=== PATIENT | female | born 1955 | race Caucasian/White ===

== ENCOUNTER 2023-06-25 06:34 | Emergency (ER) | payer OTHER ==
--- OUTSIDE RECORDS SUMMARY | 2023-06-25 06:38 | XMS REPORT | Continuity of Care Document ---
:1955 Author Organization [facility] t Address [address] [place] [address] [address] [place] [address] Care Team Providers Name Role Phone Asked, No Pcp Primary Care Physician Unavailable Norman Jerome Attending Clinician Unavailable FOG_A_Provider Attending Clinician Unavailable MAZIN_Norma Attending Clinician Unavailable Russ Alcantar MD Attending Clinician KATHERIN TAI Attending Clinician Unavailable Katherin Trotter Attending Clinician DR LUCINA LEMUS Attending Clinician Unavailable ARLETTE MARCUM Admitting Clinician Unavailable FOG_A_Provider Admitting Clinician Unavailable Jackie Admitting Clinician Unavailable KATHERIN TAI Admitting Clinician Unavailable DR LUCINA LEMUS Admitting Clinician Unavailable Payers Payer Name Policy Type Policy Number Effective Date Expiration Date S sally MEDICARE B-[place]: [id number] 2022 [employer] 00:00:00 [employer] (MEDICARE [id number] SUPPLEMENT) AETNA [id number] MEDICARE PART A \T\ [id number] 2022 B 00:00:00 [employer]ET[employer] SENIOR [id number] 2022 SUPPLEMENT 00:00:00 Problems Condition Condition Condition Status Onset Resolution Last Treating Co mments Source Name Details Category Date Date Treatment Clinician Date Osteoarthr Osteoarthr Problem Active A zalea itis of itis of 406 Orthope right knee Right Knee 00:00: di c joint Joint 00 Sports Medicin e Cervical Cervical Problem Active 2016-11 Azale a spondylosi Spondylosi 0-11 Or thope s s 00:00: dic 00 Sports Medicin e Lumbar Lumbar Problem Active 2016-11 [facility] radiculopa Radiculopa 0-11 Or thope thy thy 00:00: dic 00 Sports Medicin e Other Other Disease Active Univers psoriasis psoriasis 4-10 ity of 00:00: [place] 00 Medical Branch DSAP DSAP Disease Active Univers (dissemina (dissemina 4-10 it y of ranjan ranjan 00:00: [place] superficia superficia 00 Me dical l actinic l actinic Bran ch porokerato porokerato sis) sis) Dyschromia Dyschromia Disease Active Overview : Univers 4-10 Formattin ity of 00:00: g of this [place] 00 note Medical might be Branch different from the original. ICD10 Diagnosis Term Collar Cutter Utility Allergies, Adverse Reactions, Alerts Allergy Allergy Status Severity Reaction(s) Onset Inactive Treating Comm ents Source Name Type Date Date Clinician No Known DA Active U [facility] Allergie 03-26 Clear s 00:00: Montesinos 00 [facility] NO KNOWN Drug Active Univers ALLERGIE Class ity of S [facility] Social History Social Habit Start Date Stop Date Quantity Comments Source Gender identity 2022-10-08 Identifies as Method ist 07:21:38 female gender Hospital (finding) Sexual orientation [facility] Hospital Exposure to 2022-08-22 2022-09-01 Unable to assess Univers ity of SARS-CoV-2 (event) 00:00:00 15:41:00 [facility] Alcohol intake 2022-09-01 2022-09-01 Current University of 00:00:00 00:00:00 non-drinker of [facility] alcohol (finding) Branch Tobacco use and 2013-04-03 2013-04-03 Smokeless tobacco Un iversity of exposure 00:00:00 00:00:00 non-user [facility] Sex Assigned At [birth year] F [facility] 00:00:00 00:00:00 Hospital Smoking Status Start Date Stop Date Source Former Smoker [facility] Diogo reyna Sports Medicine Tobacco smoking consumption [facility] unknown Never smoked tobacco [facility] Medical Branch Medications Ordered Filled Start Stop Current Ordering Indication Dosage Frequency Signature Comments Components Source Medication Medication Date Date Medication? Clinician (SIG) Name Name meloxicam 2021-11 Yes 15mg Take 15 mg Un akira 15 mg 0-05 by mouth ity of tablet 18:08: once daily [place] [id number] as needed Medical for Pain. Branch dicyclomine 2021-11 Yes 20mg Take 20 mg Univers 20 mg 0-05 by mouth ity of tablet 18:08: as needed [place] [address] for Medical Abdominal Branch pain. cyclobenzap 2021-11 Yes 10mg Take 10 mg Univers rine 10 mg 0-05 by mouth ity o f tablet 18:08: as needed [place] [address] for Muscle Medical Spasms. Branch metoprolol 2021-11 Yes 25mg Take 25 mg U nivers succinate 0-05 by mouth ity of XL 25 mg 24 [facility] morning. Medica l Branch levothyroxi 2021-11 Yes 20mg Take 20 mg Univers ne sodium 0-05 by mouth. ity o f (EUTHYROX 18:08: [place] ORAL) 35 Medical Branch losartan-hy 2021-11 Yes 1{tbl} Take 1 Un akira drochloroth 0-05 tablet by ity of iazide 18:08: mouth in [place] 100-25 mg 35 the Medical per tablet morning. Branc h escitalopra 2021-11 Yes 10mg Take 10 mg Univers m oxalate 0-05 by mouth ity of (LEXAPRO) 18:08: in the [place] 10 mg 35 morning. Medical tablet Branch omeprazole 2021-11 Yes 40mg Take 40 mg U nivers 40 mg 0-05 by mouth ity of capsule 18:08: in the [place] 35 morning. Medical Branch simvastatin 2021-11 Yes [id number] 40mg Take 40 mg Univers (ZOCOR) 40 0-05 by mouth ity o f mg tablet 15:59: at [place] 11 bedtime. Medical Branch omega-3 2021-11 Yes [id number] 1g Take 1 g U nivers fatty 0-05 by mouth ity of acids-vitam 15:59: daily. [place] in E 1,000 11 Medical mg capsule Branch MULTIVITAMI 2021-11 Yes [id number] Take by Univers NS WITH 0-05 mouth ity of FLUORIDE 15:59: daily. [place] (MULTI-JONATHAN 11 Medical MIN ORAL) Branch MAGNESIUM 2021-11 Yes [id number] Take by Univers HYDROXIDE 0-05 mouth ity of (MAGNESIA 15:59: daily. [place] ORAL) 11 Medical Branch lisinopril 2021-11- No [id number] 10mg Take 10 mg Univers (PRINIVIL,Z 0-05 10-05 by mouth ity of ESTRIL) 10 15:57: 00:00 daily. [place] mg tablet 48 :00 Medical Branch FLUoxetine 2021-11- No [id number] 20mg Take 20 mg Univers (PROZAC) 20 0-05 10-05 by mouth ity of mg capsule 15:57: 00:00 [place]. [place] 45 :00 Medical Branch prednisone prednisone 2016-11 No prednisone [facility] 10 mg 10 mg 11 10 mg Orthope tablets in tablets in 00:00: tablets in dic a dose pack a dose pack 00 a dose Sports TAKE TAKE pack TAKE Medicin TABLETS TABLETS TABLETS e 6,5,4,3,2,1 6,5,4,3,2,1 6,5,4,3,2, 1 oxybutynin 2021- No [id number] 15mg Take 1 Tab Univers (DITROPAN 5 10-05 by mouth ity o f XL) 15 mg 00:00: 00:00 daily. [place] 24 hr 00 :00 Medical tablet Branch tretinoin Yes [id number] Apply to Univers (RETIN-A) 4- area(s) at ity of 0.025 % 00:00: bedtime. [place] cream Medical Branch fluocinonid Yes [id number] Apply to Univers e (LIDEX) 4-09 area(s) 2 ity o f 0.05 % 00:00: (two) [place] cream 00 times Medical daily. Branch calcipotrie Yes [id number] Apply to Univers ne 4-09 area(s) 2 ity of (DOVONEX) 00:00: (two) [place] 0.005 % 00 times Medical cream daily. Branch acetaminoph acetaminoph No acetaminop [facility] en 300 en 300 hen 300 Orthope mg-codeine mg-codeine mg-codeine dic 30 mg 30 mg 30 mg Sports tablet TAKE tablet TAKE tablet Medicin 1 TABLET BY 1 TABLET BY TAKE 1 e MOUTH TWICE MOUTH TWICE TABLET BY DAILY DAILY MOUTH NEEDED NEEDED TWICE DAILY NEEDED amiodarone amiodarone No amiodarone [facility] 200 mg 200 mg 200 mg Orthope tablet TAKE tablet TAKE tablet dic 1 TABLET BY 1 TABLET BY TAKE 1 Sports MOUTH TWICE MOUTH TWICE TABLET BY Medicin DAILY DAILY MOUTH e TWICE DAILY BinaxNOW BinaxNOW No BinaxNOW Aza mehul COVID-19 Ag COVID-19 Ag COVID-19 Orthope Self Test Self Test Ag Self di c kit Use as kit Use as Test kit Sports Directed on Directed on Use as Medicin the Package the Package Directed e on the Package bromphenira bromphenira No bromphenir [facility] mine-pseudo mine-pseudo amine-pseu Orthope ephedrine-D ephedrine-D doephedrin dic M 2 mg-30 M 2 mg-30 e-DM 2 Spo rts mg-10 mg/5 mg-10 mg/5 mg-30 Me dicin mL oral mL oral mg-10 mg/5 e syrup TAKE syrup TAKE mL oral 10 ML BY 10 ML BY syrup TAKE MOUTH THREE MOUTH THREE 10 ML BY TIMES DAILY TIMES DAILY MOUTH NEEDED NEEDED THREE TIMES DAILY NEEDED clobetasol clobetasol No clobetasol [facility] 0.05 % 0.05 % 0.05 % Orthope topical topical topical dic cream APPLY cream APPLY cream Sports CREAM CREAM APPLY Medicin TOPICALLY TOPICALLY CREAM e TWICE DAILY TWICE DAILY TOPICALLY TO KNEE TO KNEE TWICE DAILY TO KNEE cyclobenzap cyclobenzap No cyclobenza [facility] rine 10 mg rine 10 mg marty 10 Orthope tablet TAKE tablet TAKE mg tablet dic 1 TABLET BY 1 TABLET BY TAKE 1 Sports MOUTH THREE MOUTH THREE TABLET BY Medicin TIMES DAILY TIMES DAILY MOUTH e NEEDED NEEDED THREE TIMES DAILY NEEDED dicyclomine dicyclomine No dicyclomin [facility] 20 mg 20 mg e 20 mg Orthope tablet TAKE tablet TAKE tablet dic 1 TABLET BY 1 TABLET BY TAKE 1 Sports MOUTH EVERY MOUTH EVERY TABLET BY Medicin 8 HOURS 8 HOURS MOUTH e NEEDED NEEDED EVERY 8 HOURS NEEDED escitalopra escitalopra No escitalopr [facility] m 20 mg m 20 mg am 20 mg Ortho pe tablet TAKE tablet TAKE tablet dic 1 TABLET BY 1 TABLET BY TAKE 1 Sports MOUTH ONCE MOUTH ONCE TABLET BY Medicin DAILY DAILY MOUTH ONCE e DAILY flecainide flecainide No flecainide [facility] 50 mg 50 mg 50 mg Orthope tablet TAKE tablet TAKE tablet dic 1 TABLET BY 1 TABLET BY TAKE 1 Sports MOUTH TWICE MOUTH TWICE TABLET BY Medicin DAILY DAILY MOUTH e TWICE DAILY hydroquinon hydroquinon No hydroquino [facility] e 4 % e 4 % ne 4 % Orthope topical topical topical dic cream APPLY cream APPLY cream Sports CREAM CREAM APPLY Medicin TOPICALLY TOPICALLY CREAM e EVERY DAY EVERY DAY TOPICALLY AT BEDTIME AT BEDTIME EVERY DAY AT BEDTIME levothyroxi levothyroxi No levothyrox [facility] ne 25 mcg ne 25 mcg ine 25 mcg Orthope tablet TAKE tablet TAKE tablet dic 1 TABLET BY 1 TABLET BY TAKE 1 Sports MOUTH ONCE MOUTH ONCE TABLET BY Medicin DAILY IN DAILY IN MOUTH ONCE e THE MORNING THE MORNING DAILY IN ON AN EMPTY ON AN EMPTY THE STOMACH STOMACH MORNING ON AN EMPTY STOMACH losartan losartan No losartan Aza mehul 100 100 100 Orthope mg-hydrochl mg-hydrochl mg-hydroch dic orothiazide orothiazide lorothiazi Sports 25 mg 25 mg de 25 mg Medicin tablet TAKE tablet TAKE tablet e 1 TABLET BY 1 TABLET BY TAKE 1 MOUTH ONCE MOUTH ONCE TABLET BY DAILY DAILY MOUTH ONCE DAILY methylpredn methylpredn No methylpred [facility] isolone 4 isolone 4 nisolone 4 Orthope mg tablets mg tablets mg tablets dic in a dose in a dose in a dose Sports pack TAKE pack TAKE pack TAKE Medicin BY MOUTH BY MOUTH BY MOUTH e DIRECTED ON DIRECTED ON INSIDE OF INSIDE OF DIRECTED PACKAGE PACKAGE ON INSIDE OF PACKAGE metoprolol metoprolol No metoprolol [facility] succinate succinate succinate Orthope ER 25 mg ER 25 mg ER 25 mg dic tablet,exte tablet,exte tablet,ext Sports nded nded ended Medicin release 24 release 24 release 24 e hr TAKE 1/2 hr TAKE 1/2 hr TAKE (ONE-HALF) (ONE-HALF) 1/2 TABLET BY TABLET BY (ONE-HALF) MOUTH TWICE MOUTH TWICE TABLET BY DAILY DAILY MOUTH TWICE DAILY montelukast montelukast No montelukas [facility] 10 mg 10 mg t 10 mg Orthope tablet TAKE tablet TAKE tablet dic 1 TABLET BY 1 TABLET BY TAKE 1 Sports MOUTH ONCE MOUTH ONCE TABLET BY Medicin DAILY DAILY MOUTH ONCE e DAILY olopatadine olopatadine No olopatadin [facility] 0.2 % eye 0.2 % eye e 0.2 % Or thope drops drops eye drops dic INSTILL 1 INSTILL 1 INSTILL 1 Sports DROP INTO DROP INTO DROP INTO Medicin AFFECTED AFFECTED AFFECTED e EYE(S) ONCE EYE(S) ONCE EYE(S) DAILY DAILY ONCE DAILY omeprazole omeprazole No omeprazole [facility] 40 mg 40 mg 40 mg Orthope capsule,del capsule,del capsule,de dic ayed ayed layed Sports release release release Medici n TAKE 1 TAKE 1 TAKE 1 e CAPSULE BY CAPSULE BY CAPSULE BY MOUTH ONCE MOUTH ONCE MOUTH ONCE DAILY DAILY DAILY Paxlovid Paxlovid No Paxlovid Aza mehul 300 mg (150 300 mg (150 300 mg Orthope mg x 2)-100 mg x 2)-100 (150 mg x dic mg tablets mg tablets 2)-100 mg Sports in a dose in a dose tablets in Medicin pack (EUA) pack (EUA) a dose e TAKE 3 TAKE 3 pack (EUA) TABLETS TABLETS TAKE 3 TOGETHER TOGETHER TABLETS (TWO 150 MG (TWO 150 MG TOGETHER NIRMATRELVI NIRMATRELVI (TWO 150 R TABLETS R TABLETS MG AND ONE 100 AND ONE 100 NIRMATRELV MG MG IR TABLETS RITONAVIR RITONAVIR AND ONE TABLET) BY TABLET) BY 100 MG MOUTH TWICE MOUTH TWICE RITONAVIR DAILY FOR 5 DAILY FOR 5 TABLET) BY DAYS. DAYS. MOUTH TWICE DAILY FOR 5 DAYS. prednisone prednisone No prednisone [facility] 20 mg 20 mg 20 mg Orthope tablet TAKE tablet TAKE tablet dic 1 TABLET BY 1 TABLET BY TAKE 1 Sports MOUTH ONCE MOUTH ONCE TABLET BY Medicin DAILY FOR 5 DAILY FOR 5 MOUTH ONCE e DAYS DAYS DAILY FOR 5 DAYS simvastatin simvastatin No simvastati [facility] 10 mg 10 mg n 10 mg Orthope tablet TAKE tablet TAKE tablet dic 1 TABLET BY 1 TABLET BY TAKE 1 Sports MOUTH ONCE MOUTH ONCE TABLET BY Medicin DAILY IN DAILY IN MOUTH ONCE e THE EVENING THE EVENING DAILY IN THE EVENING simvastatin simvastatin No simvastati [facility] 40 mg 40 mg n 40 mg Orthope tablet TAKE tablet TAKE tablet dic 1 TABLET BY 1 TABLET BY TAKE 1 Sports MOUTH ONCE MOUTH ONCE TABLET BY Medicin DAILY IN DAILY IN MOUTH ONCE e THE EVENING THE EVENING DAILY IN THE EVENING temazepam temazepam No temazepam [facility] 15 mg 15 mg 15 mg Orthope capsule capsule capsule dic TAKE 1 TO 2 TAKE 1 TO 2 TAKE 1 TO Sports CAPSULES BY CAPSULES BY 2 CAPSULES Medicin MOUTH ONCE MOUTH ONCE BY MOUTH e DAILY AT DAILY AT ONCE DAILY BEDTIME BEDTIME AT BEDTIME NEEDED NEEDED NEEDED zolpidem 10 zolpidem 10 No zolpidem [facility] mg tablet mg tablet 10 mg Orth ope TAKE 1 TAKE 1 tablet dic TABLET BY TABLET BY TAKE 1 Spo rts MOUTH ONCE MOUTH ONCE TABLET BY Medicin DAILY AT DAILY AT MOUTH ONCE e BEDTIME BEDTIME DAILY AT NEEDED NEEDED BEDTIME NEEDED Immunizations Ordered Filled Immunization Date Status Comments [facility] Immunization Name Name DEBORA COVID-19 2021-09-23 Completed [facility] MRNA VACCINATION 00:00:00 [facility] PFIZER COVID-19 2021-09-23 Completed [facility] MRNA VACCINATION 00:00:00 [facility] PFIZER COVID-19 2021-02-14 Completed [facility] MRNA VACCINATION 00:00:00 [facility] SARS-COV-2 COVID-19 2021-02-14 Completed Unive rsity of PFIZER VACCINE 00:00:00 [facility] PFIZER COVID-19 2021-02-14 Completed Alev[facility] MRNA VACCINATION 00:00:00 [facility] PFIZER COVID-19 2021-01-24 Completed [facility] MRNA VACCINATION 00:00:00 [facility] SARS-COV-2 COVID-19 2021-01-24 Completed Unive rsity of PFIZER VACCINE 00:00:00 [facility] PFIZER COVID-19 2021-01-24 Completed [facility] MRNA VACCINATION 00:00:00 Hospital Vital Signs Vital Name Observation Time Observation Value Comments Source Height 2023-03-03 00:00:00 70 [in_i] [facility] BMI (Body Mass 2023-03-03 00:00:00 23.8 kg/m2 [facility] Orthopedic Index) Sports Medicine Body Weight 2023-03-03 00:00:00 166 [lb_av] [facility] Systolic blood 2022-09-01 23:00:00 140 mm[Hg] Univer sity of pressure [facility] Diastolic blood 2022-09-01 23:00:00 65 mm[Hg] Unive rsity of pressure [facility] Heart rate 2022-09-01 23:00:00 60 /min General acute hospital Respiratory rate 2022-09-01 23:00:00 20 /min [facility] Oxygen saturation in 2022-09-01 23:00:00 98 /min [facility] Arterial blood by [facility] Pulse oximetry Branch Body temperature 2022-09-01 20:43:00 36.72 Susan [facility] Systolic blood 2022-10-06 19:34:00 160 mm[Hg] [facility] pressure Diastolic blood 2022-10-06 19:34:00 75 mm[Hg] [facility] pressure Heart rate 2022-10-06 19:34:00 58 /min [facility] Respiratory rate 2022-10-06 19:34:00 18 /min [facility] [place] [facility] Body height 2022-10-06 19:34:00 177.8 cm [facility] Body weight 2022-10-06 19:34:00 74.844 kg [facility] BMI 2022-10-06 19:34:00 23.68 kg/m2 [facility] Oxygen saturation in 2022-10-06 19:34:00 98 /min [facility] Arterial blood by Pulse oximetry Procedures Procedure Date / Time Performing Clinician Source Performed XR, knee, 4 or more 2023-03-03 00:00:00 [facility] O rthopedic view Sports Medicine CV MRI FUNCTION 2022-10-06 20:33:37 [facility] VIABILITY CHF EVALUATION ESTIMATED GFR 2022-10-06 19:20:00 [facility] POC PANEL 2022-10-06 19:20:00 [facility] CT HEAD WO CONTRAST 2022-09-01 21:27:11 [facility] 1 VW 2022-09-01 21:17:05 [facility] TROPONIN I 2022-09-01 20:50[facility] 2022-09-01 20:50:00 [place] [facility] HORMONE [facility] COMP. METABOLIC PANEL 2022-09-01 20:50:00 [id number] CBC WITH DIFF 2022-09-01 20:50:00 [place] [facility] PROTHROMBIN TIME / INR 2022-09-01 20:50:00 Katherin Tai [facility] D-DIMER 2022-09-01 20:50:00 [place], [facility] N-TERMINAL PRO-BNP 2022-09-01 20:50:00 [place], [facility] Knee Surgery [facility] Shoulder Surgery [facility] Wrist Surgery [facility] Appendectomy [facility] Elbow Surgery [facility] Foot Surgery [facility] Hysterectomy [facility] Plan of Care Planned Activity Planned Date Details Comments Source Future Scheduled Test 2023-05-16 Screening for [facility] 22:32:21 malignant neoplasm of colon (procedure) [code = 494132283] Future Scheduled Test 2023-05-16 [facility] 22:32:21 malignant neoplasm of colon (procedure) [code = 759979629] Future Scheduled Test 2023-05-[address] [facility] 22:32:21 malignant neoplasm of colon (procedure) [code = 713390886] Future Scheduled Test 2023-05-16 Hepatitis C Method [facility] 22:32:21 screening (procedure) [code = 298964549] Future Scheduled Test 2023-05-16 BREAST CANCER [facility] 22:32:21 SCREENING [code = BREAST CANCER SCREENING] Future Scheduled Test 2023-05-16 [facility] 22:32:21 malignant neoplasm of colon (procedure) [code = 423792563] Future Scheduled Test 2023-05-16 Screening for [facility] 22:32:21 malignant neoplasm of colon (procedure) [code = 569350139] Future Scheduled Test 2023-05-16 SHINGLES VACCINES (1 [facility] 22:32:21 of 2) [code = SHINGLES VACCINES (1 of 2)] Future Scheduled Test 2023-05-16 COVID-19 VACCINE (4 [facility] 22:32:21 - Pfizer series) [code = COVID-19 VACCINE (4 - Pfizer series)] Future Scheduled Test 2023-05-16 INFLUENZA VACCINE [facility] 22:32:21 [code = INFLUENZA VACCINE] Future Scheduled Test 2023-03-19 Hepatitis C Method [facility] 12:34:51 screening (procedure) [code = 427561934] Future Scheduled Test 2023-03-19 BREAST CANCER [facility] 12:34:51 SCREENING [code = BREAST CANCER SCREENING] Future Scheduled Test 2023-03-19 COLONOSCOPY Method [facility] 12:34:51 SCREENING [code = COLONOSCOPY SCREENING] Future Scheduled Test 2023-03-19 SHINGLES VACCINES (1 [facility] 12:34:51 of 2) [code = SHINGLES VACCINES (1 of 2)] Future Scheduled Test 2023-03-19 COVID-19 VACCINE (4 [facility] 12:34:51 - Booster for Pfizer series) [code = COVID-19 VACCINE (4 - Booster for Pfizer series)] Future Scheduled Test 2023-03-19 INFLUENZA VACCINE [facility] 12:34:51 [code = INFLUENZA VACCINE] Instructions [facility] Encounters Start End Encounter Admission Attending Care Care Encounter Source Date/Time Date/Time Type Type Clinicians Facility Department ID 2023-03-26 2023-03-26 Emergency EM Norman Jerome [facility] [id number] [facility] 11:01:00 14:21:00 61 [facility] 2023-03-07 2023-03-07 [id number] 00:00:00 00:00:00 ingris [id number] Orthop e dic Sports Medicin e 2023-03-03 2023-03-03 Russ Felipe [facility] [place] - [facility]o [id number] [facility] 00:00:00 00:00:00 Brenda Gleason MD: [id number] FOG_Ofc dic [facility] [place], [place] [address] , Ph. [phone] 2023-02-22 2023-02-22 Outpatient FOG_Abilio AOSM AOSM [id number] [facility] 00:00:00 00:00:00 Genaro [id number] Orth ope dic Sports Medicin e 2023-02-22 2023-02-22 Outpatient FOG_Abilio AOSM AOSM [id number] [facility] 00:00:00 00:00:00 Genaro [id number] Orth ope dic Sports Medicin e 2023-02-22 2023-02-22 Outpatient FOG_Abilio AOSM AOSM [id number] [facility] 00:00:00 00:00:00 Genaro [id number] Orth ope dic Sports Medicin e 2022-11-23 2022-11-23 Outpatient FOG_Abilio AOSM AOSM [id number] [facility] 00:00:00 00:00:00 Genaro [id number] Orth ope dic Sports Medicin e 2022-10-06 2022-10-06 [facility] 1.2.840.1 [id number] Methodi 12:58:16 23:59:00 Encounter Russ AnaDarling [id number] 3.430.2.7 Hospit a .3.045285 l .8 2022-10-06 2022-10-06 [facility] 1.2.840.1 [id number] Methodi 12:58:16 23:59:00 Encounter Russ Wu [id number] 3.430.2.7 Hospit a .3.292834 l .8 2022-10-06 2022-10-06 Travel 1.2.840.1 [id number] Methodi 00:00:00 00:00:[address] 3.430.2.7 0.2.7.3.698 Ho spita .3.718081 084.8 l .8 2022-10-06 2022-10-06 Travel 1.2.840.1 [id number] [id number] Methodi 00:00:00 00:00:[address] 3.430.2.7 0.2.7.3.698 Ho spita .3.378111 084.8 l .8 2022-09-24 2022-09-24 Transcribe Pepper, 1.2.840.1 [id number] Methodi 00:00:00 00:00:00 Orders Russ Perez. 12337.1.1 771 s t 3.430.2.7 Hospit a .3.529910 l .8 2022-09-24 2022-09-24 Transcribe Pepper, 1.2.840.1 [id number] Methodi 00:00:00 00:00:00 Orders Russ S. 36223.1.1 771 s t 3.430.2.7 Hospit a .3.045621 l .8 2022-09-01 2022-09-01 Emergency X RIDDLE, [facility] ERT [id number] Univers 15:43:00 18:08:00 KATHERIN it y of [facility] 2022-09-01 2022-09-01 Emergency [place], [facility] 1.2.155.409 [id number] Univers 15:43:00 18:08:00 Katherin SMITH 350.1.13.10 ity [facility] 4.2.7.2.686 [facility] [id number] [place] [address] Branch 2019-05-04 2019-05-04 Outpatient Carrol LEMUS [facility] [id number] [facility] 04:35:00 07:07:00 LUCINA [facility] Results Test Description Test Time Test Comments Results Result Comments Source POC panel 2022-10-06 19:23:00 Test Item Value Reference Range Interpretation Comme nts POC creatinine (test code = 0.9 mg/dl 0.5-0.9 Brick Grader Name: Lora [id number]) Princess e ID: [id number] POC hematocrit (test code = 44 % 37-47 4544-3) [facility] [id number] 19:23:00 Test Item Value Reference Range Interpretation Comments Estimated GFR (test 67 mL/min/1.73 m2 Caterg ory Units code = 64149-4) Interpretati onG1 >=90 Normal or highG 2 60-89 Mildly decrease dG3a 45-59 Mildly to moder ately akmhwsiqhM3m 30 -44 Moderately to s everely decreasedG4 15- 29 Severely decreasedG5 <15 Kidney failureThe eGFR was calculated usin g the Chronic Kidney Disease Epidemiology Co llaboration (CKD-EPI) equat ion. Interpretation is based on recommendations of the National Kidney Foundation-Kidn ey Disease Outcomes Qualit y Initiative (NKF-KDOQI) pub lished in 2014. [facility] [id number] 19:23:00 Test Item Value Reference Range Interpretation Comments POC creatinine 0.9 mg/dl 0.5-0.9 Brick Grader Name : Lora (test code = Idrsiic e ID: [id number]) [id number] POC hematocrit 44 % 37-47 (test code = 4544-3) [facility] [id number] 19:23:00 Test Item Value Reference Range Interpretation Comments Estimated GFR (test 67 mL/min/1.73 m2 Caterg ory Units code = 38039-5) Interpretati onG1 >=90 Normal or highG 2 60-89 Mildly decrease dG3a 45-59 Mildly to moder ately [id number] 30 -44 Moderately to s everely decreasedG4 15 -29 Severely decreasedG5 <15 Kidney failureThe eGFR was calculated usin g the Chronic Kidney Disease Epidemiology Co llaboration (CKD-EPI) equat ion. Interpretation is based on recommendations of the National Kidney Foundation-Kidn ey Disease Outcomes Qualit y Initiative (NKF-KDOQI) pub lished in 2014. [facility]
[2023-06-25 07:34] LABS: Absolute Lymphocytes (CBC) 1.3 K/uL (0.7-4.9); Hematocrit 39.9 % (36.0-45.0); Lymphocytes % 26.5 % (15.3-44.8); MCV 95.2 fL (80-100); MPV 8.7 fL (7.6-11.3); RBC Red Blood Cell Count 4.19 M/uL (3.86-4.86)
[2023-06-25 07:49] LABS: Magnesium 1.8 mg/dL (1.6-2.4); Potassium 3.3 mEq/L (3.5-5.1)
[2023-06-25] MEDS ORDERED: POTASSIUM CL SA 10 MEQ TAB PO ONE (08:21)
--- NOTE | 2023-06-25 08:52 | RAD REPORT ---
EXAM DESCRIPTION: RAD - Chest Single View - 06/25/2023 7:57 am CLINICAL HISTORY: CHEST PAIN Chest pain. COMPARISON: Chest Pa And Lat (2 Views) dated 03/17/2021; CHEST PA AND LAT 2 VIEW dated 07/05/2015; CHES T PA AND LAT 2 VIEW dated 01/28/2015 FINDINGS: Portable technique limits examination quality. The lungs are grossly clear. The heart is normal in size. No displaced fractures. IMPRESSION: No acute intrathoracic process suspected.
[2023-06-25] MEDS ORDERED: MORPHINE 4 MG/ML SYR ONE (09:18)
--- NOTE | 2023-06-25 09:18 | EDPHYS ---
Physician Documentation [facility] Name: Cassandra Coatse Age: 68 yrs Sex: Female : 1955 Arrival Date: 06/25/2023 Time: 06:34 Bed 15 Private MD: ED Physician Osvaldo Rivera HPI: 06/25 09:01 This 68 yrs old Female presents to ER via Ambulatory with complaints of Palpitations. ms3 09:01 68-year-old female with past medical history of GERD, hyperlipidemia, hypertension, ms3 shoulder pain, depression presents for palpitations that began prior to going to bed last night. Patient states her discomfort from the palpitations is a 6/10 and feels like an irregular heartbeat. Patient denies alleviating or inciting factors.. Historical: - Allergies: 07:30 No Known Allergies; ss - Home Meds: 07:30 Euthyroid 20 mg DAILY [Active]; losartan-hydrochlorothiazide 100-25 mg oral tablet ss daily [Active]; Lexapro [Active]; metoprolol tartrate 50 mg Oral tablet 0.5 tabs every 12 hours [Active]; flecainide 50 mg oral tablet 1 tab once [Active]; - PMHx: 07:30 GERD; Hyperlipidemia; Hypertension; shoulder pain; Depressive disorder; ss - PSHx: 07:34 Appendectomy; R shoulder repair; L elbow; Hysterectomy; ss - Immunization history:: Client reports receiving the 2nd dose of the Covid vaccine. - Social history:: Smoking status: Patient denies any tobacco usage or history of. ROS: 09:01 Constitutional: Negative for fever, and chills. Neck: Negative for injury, pain, and ms3 swelling. 09:01 Abdomen/GI: Negative for abdominal pain, nausea, vomiting, diarrhea, and constipation, MS/Extremity: Negative for injury and deformity, Skin: Negative for injury, rash, and discoloration. 09:01 Cardiovascular: Positive for palpitations. 09:01 All other systems are negative. Exam: 09:01 Constitutional: This is a well developed, well nourished patient who is awake, alert, ms3 and in no acute distress. Head/Face: Normocephalic, atraumatic. Neck: Trachea midline, no cervical lymphadenopathy. Supple, full range of motion without nuchal rigidity, or vertebral point tenderness. No Meningismus. Chest/axilla: Normal chest wall appearance and motion. Nontender with no deformity. Cardiovascular: Regular rate and rhythm with a normal S1 and S2. No gallops, murmurs, or rubs. Normal PMI, no JVD. No pulse deficits. Respiratory: Lungs have equal breath sounds bilaterally, clear to auscultation and percussion. No rales, rhonchi or wheezes noted. No increased work of breathing, no retractions or nasal flaring. Abdomen/GI: Soft, non-tender, with normal bowel sounds. No distension or tympany. No guarding or rebound. No evidence of tenderness throughout. Skin: Warm, dry with normal turgor. Normal color with no rashes, no lesions, and no evidence of cellulitis. MS/ Extremity: Pulses equal, no cyanosis. Neurovascular intact. Full, normal range of motion. Vital Signs: 06:57 BP 162 / 70; Pulse 69; Resp 16; Temp 98.8(O); Pulse Ox 98% on R/A; Weight 72.57 kg; ss Height 5 ft. 10 in. ; Pain 6/10; 07:38 BP 176 / 76; Pulse 73; Resp 17; Pulse Ox 100% on R/A; ll1 08:16 BP 144 / 70; Pulse 72; Resp 17; ll1 09:06 BP 138 / 75; Pulse 57; Resp 18; Pulse Ox 100% on R/A; Pain 6/10; nj1 09:43 BP 153 / 84; Pulse 62; Resp 17; Pulse Ox 100% ; nj1 10:04 Pain 3/10; nj1 06:57 Body Mass Index 22.96 (72.57 kg, 177.8 cm) ss 06:57 Pain Scale: Adult ss 09:06 Pain Scale: Adult nj1 10:04 Pain Scale: Adult nj1 MDM: 07:14 Patient medically screened. ms3 09:01 Differential diagnosis: abnormal EKG, acute myocardial infarction, mitral valve ms3 prolapse. Data reviewed: vital signs, nurses notes, lab test result(s), EKG, radiologic studies, and as a result, I will discharge patient. 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 Counseling: I had a detailed discussion with the patient and/or guardian regarding: the historical points, exam findings, and any diagnostic results supporting the discharge/admit diagnosis, lab results, radiology results, the need for outpatient follow up, to return to the emergency department if symptoms worsen or persist or if there are any questions or concerns that arise at home. Special discussion: Based on the patient's history, exam, and Dx evaluation, there is no indication for emergent intervention or inpatient Tx. It is understood by the patient/guardian that if the Sx's persist or worsen they need to return immediately for re-evaluation. 06/25 07:06 Order name: Basic Metabolic Panel; Complete Time: 08:08 ms3 06/25 07:06 Order name: CBC with Diff; Complete Time: 08:08 ms3 06/25 07:06 Order name: Magnesium; Complete Time: 08:08 ms3 06/25 07:06 Order name: Troponin HS; Complete Time: 08:08 ms3 06/25 07:06 Order name: XRAY Chest (1 view); Complete Time: 09:04 ms3 06/25 07:06 Order name: EKG; Complete Time: 07:07 ms3 06/25 07:06 Order name: Cardiac monitoring; Complete Time: 07:36 ms3 06/25 07:06 Order name: EKG - Nurse/Tech; Complete Time: 07:36 ms3 06/25 07:06 Order name: IV Saline Lock; Complete Time: 07:36 ms3 06/25 07:06 Order name: Labs collected and sent; Complete Time: 07:36 ms3 06/25 07:06 Order name: O2 Per Protocol; Complete Time: 07:12 ms3 06/25 07:06 Order name: O2 Sat Monitoring; Complete Time: 07:12 ms3 Administered Medications: 08:16 Drug: Potassium Chloride PO Liquid 20 mEq Route: PO; ll1 09:12 Not Given (Physician Discretion): Ondansetron IVP 4 mg IVP once; over 2 minutes nj1 09:13 Not Given (Physician Discretion): morphine IVP or IV 4 mg IVP once over 4 mins nj1 09:17 Drug: Ketorolac IVP 10 mg 10 mg Route: IVP; Site: right wrist; nj1 10:04 Follow up: Pain 3/ Adult; Response: No adverse reaction; Pain is decreased nj1 Disposition Summary: 06/25/23 09:18 Discharge Ordered Location: Home ms3 Condition: Stable ms3 Diagnosis - Palpitations ms3 - Essential (primary) hypertension ms3 Followup: ms3 - With: Private Physician - When: 2 - 3 days - Reason: Recheck today's complaints Discharge Instructions: - Discharge Summary Sheet ms3 - Hypertension, Adult ms3 - Palpitations ms3 Forms: - Medication Reconciliation Form ms3 - Thank You Letter ms3 - Antibiotic Education ms3 - Prescription Opioid Use ms3 - Patient Portal Instructions ms3 Signatures: Dispatcher [employer] Ness Zepeda RN RN ss Yuil Castle RN RN 1 Osvaldo Rivera DO DO ms3 [place] RN RN nj1 Corrections: (The following items were deleted from the chart) 07:36 07:30 Home Meds: Euthyroi 20 mg DAILY; [facility]
--- NOTE | 2023-06-25 09:18 | ER ---
Nurse's Notes [facility] Name: Cassandra Coates Age: 68 yrs Sex: Female : 1955 Arrival Date: 06/25/2023 Time: 06:34 Bed 15 Private MD: Diagnosis: Palpitations;Essential (primary) hypertension Presentation: 06/25 06:57 Chief complaint: Patient states: Chest discomfort that began yesterday and is worse ss today. Pt reports she has been under a lot of stress lately. Also c/o mid back pain x 1 week. Coronavirus screen: Client denies travel out of the [place] in the last 14 days. Ebola Screen: Patient denies exposure to infectious person. Patient denies travel to an Ebola-affected area in the 21 days before illness onset. Initial Sepsis Screen: Does the patient meet any 2 criteria? No. Patient's initial sepsis screen is negative. Does the patient have a suspected source of infection? No. Patient's initial sepsis screen is negative. Risk Assessment: Do you want to hurt yourself or someone else? Patient reports no desire to harm self or others. Onset of symptoms was June 24, 2023. 06:57 Method Of Arrival: Ambulatory ss 06:57 Acuity: SUAD 3 ss Historical: - Allergies: 07:30 No Known Allergies; ss - Home Meds: 07:30 Euthyroid 20 mg DAILY [Active]; losartan-hydrochlorothiazide 100-25 mg oral tablet ss daily [Active]; Lexapro [Active]; metoprolol tartrate 50 mg Oral tablet 0.5 tabs every 12 hours [Active]; flecainide 50 mg oral tablet 1 tab once [Active]; - PMHx: 07:30 GERD; Hyperlipidemia; Hypertension; shoulder pain; Depressive disorder; ss - PSHx: 07:34 Appendectomy; R shoulder repair; L elbow; Hysterectomy; ss - Immunization history:: Client reports receiving the 2nd dose of the Covid vaccine. - Social history:: Smoking status: Patient denies any tobacco usage or history of. Screenin:38 [facility] ED Fall Risk Assessment (Adult) Score/Fall Risk Level 0 - 2 = Low Risk ll1 Oriented to surroundings, Maintained a safe environment, Educated pt \T\ family on fall prevention, incl call for assistance when getting out of bed, Hourly rounding (assess needs \T\ fall precautionary measures) done. Abuse screen: Denies threats or abuse. Nutritional screening: No deficits noted. Tuberculosis screening: No symptoms or risk factors identified. Assessment: 07:10 General: Appears in no apparent distress. Behavior is calm, cooperative, appropriate ll1 for age, Reports stress level high. Pain: Complains of pain in chest/back Quality of pain is described as aching. Cardiovascular: Reports chest pain. Musculoskeletal: Reports back pain. 08:05 Reassessment: No changes from previously documented assessment. Patient and/or family ll1 updated on plan of care and expected duration. Pain level reassessed. Patient is alert, oriented x 3, equal unlabored respirations, skin warm/dry/pink. 08:19 Reassessment: No changes from previously documented assessment. Patient and/or family ll1 updated on plan of care and expected duration. Pain level reassessed. Patient is alert, oriented x 3, equal unlabored respirations, skin warm/dry/pink. 08:48 Reassessment: No changes from previously documented assessment. Patient and/or family ll1 updated on plan of care and expected duration. Pain level reassessed. Patient is alert, oriented x 3, equal unlabored respirations, skin warm/dry/pink. 10:05 Reassessment: Patient appears in no apparent distress at this time. Patient and/or nj1 family updated on plan of care and expected duration. Pain level reassessed. Patient is alert, oriented x 3, equal unlabored respirations, skin warm/dry/pink. Patient states feeling better. Patient states symptoms have improved. General:. 10:05 Pain: Pain began 2 mo ago. nj1 Vital Signs: 06:57 BP 162 / 70; Pulse 69; Resp 16; Temp 98.8(O); Pulse Ox 98% on R/A; Weight 72.57 kg; ss Height 5 ft. 10 in. ; Pain 6/10; 07:38 BP 176 / 76; Pulse 73; Resp 17; Pulse Ox 100% on R/A; ll1 08:16 BP 144 / 70; Pulse 72; Resp 17; ll1 09:06 BP 138 / 75; Pulse 57; Resp 18; Pulse Ox 100% on R/A; Pain 6/10; nj1 09:43 BP 153 / 84; Pulse 62; Resp 17; Pulse Ox 100% ; nj1 10:04 Pain 3/10; nj1 06:57 Body Mass Index 22.96 (72.57 kg, 177.8 cm) ss 06:57 Pain Scale: Adult ss 09:06 Pain Scale: Adult nj1 10:04 Pain Scale: Adult nj1 ED Course: 06:34 Patient arrived in ED. ag3 06:58 Osvaldo Rivera DO is Attending Physician. ms3 07:12 Yuli Castle, RN is Primary Nurse. ll1 07:15 Inserted saline lock: 22 gauge in right forearm, using aseptic technique. Blood ll1 collected. 07:30 Triage completed. ss 07:34 Arm band placed on right wrist. ss 07:38 No provider procedures requiring assistance completed. Patient maintains SpO2 ll1 saturation greater than 95% on room air. 07:38 Patient has correct armband on for positive identification. Bed in low position. Call ll1 light in reach. Side rails up X 1. Client placed on continuous cardiac and pulse oximetry monitoring. NIBP monitoring applied. cardiac monitor on. 07:59 XRAY Chest (1 view) In Process Unspecified. EDMS 10:08 IV discontinued, intact, bleeding controlled. nj1 Administered Medications: 08:16 Drug: Potassium Chloride PO Liquid 20 mEq Route: PO; ll1 09:12 Not Given (Physician Discretion): Ondansetron IVP 4 mg IVP once; over 2 minutes nj1 09:13 Not Given (Physician Discretion): morphine IVP or IV 4 mg IVP once over 4 mins nj1 09:17 Drug: Ketorolac IVP 10 mg 10 mg Route: IVP; Site: right wrist; nj1 10:04 Follow up: Pain 3/10 Adult; Response: No adverse reaction; Pain is decreased nj1 Medication: 07:38 VIS not applicable for this client. ll1 Outcome: 09:18 Discharge ordered by . ms3 10:05 Discharged to home ambulatory, with significant other. nj1 10:05 Condition: stable 10:05 Discharge instructions given to patient, Instructed on discharge instructions, follow up and referral plans. Demonstrated understanding of instructions, follow-up care. 10:08 Patient left the ED. nj1 Signatures: Dispatcher [employer] EDMS Ness Squires RN RN Jessica Patel 3 Yuli Castle RN RN ll1 Osvaldo Rivera DO DO ms3 [place], RN RN nj1 Corrections: (The following items were deleted from the chart) 07:36 07:30 Home Meds: Euthyroi 20 mg DAILY; ss 09:18 09:06 BP 138 / 75; Pulse 57bpm; Resp 18bpm; Pulse Ox 100% RA; nj1 nj1
[2023-06-25] MEDS ORDERED: ONDANSETRON 4 MG/2 ML VIAL ONE (09:19)
[2023-06-25] MEDS ORDERED: KETOROLAC 30 MG/ML INJ ONE (09:21)
[2023-06-25 10:13] VITALS: TEMP 98.8
[2023-06-25 10:15] VITALS: O2SAT 100
[2023-06-25 10:20] VITALS: BP 153/84
--- NOTE | 2023-06-26 13:12 | EKG ---
Test Date: 2023-06-25 Test Time: 07:10:19 Help Desk Representative: UNIQUE MEASUREMENT RESULTS: Intervals: Rate: 60 ID: [id number] QRSD: 104 QT: 448 QTc: 448 Buna: P: 62 ID: [id number] QRS: -7 T: 36 INTERPRETIVE STATEMENTS: Normal sinus rhythm T wave abnormality, consider anterior ischemia Abnormal ECG Compared to ECG 05/03/2017 10:58:51 Sinus bradycardia no longer present T-wave abnormality still present Possible ischemia still present Electronically Signed On 06-26-23 13:10:38 CDT by Edi Ortega
== END 2023-06-25 10:08 | disposition home or self-care (01) ==
LOC: ER 06:34
DX: R00.2 Palpitations (principal); I10 Essential (primary) hypertension; E78.5 Hyperlipidemia, unspecified; F32.A Depression, unspecified
CPT/HCPCS: 36415; 71045; 80048; 83735; 84484; 85025; 93005; 96374; 99285; J2405